=== PATIENT | male | born 1985 | race African-American/Black ===

== ENCOUNTER 2016-12-06 05:24 | Day surgery (SDC) | payer MEDICAID ==
[~2016-12-06] VITALS: Ht 175.3 cm; Wt 111.6 kg
[2016-12-06] MEDS ORDERED: LACTATED RINGERS 1,000 ML IV SCH ×2 (06:40→06:45)
[2016-12-06] MEDS ORDERED: NORMAL SALINE 0.9% 10 ML SYR ONE (07:27)
[2016-12-06] MEDS ORDERED: MORPHINE SULFATE/PF 1MG/ML 10ML AMP ONE (07:27)
[2016-12-06] MEDS ORDERED: BACITRACIN ZINC 15GM TUBE TOP ONE (07:27)
[2016-12-06] MEDS ORDERED: BACITRACIN 50,000 UNITS/VIAL ONE (07:28)
[2016-12-06] MEDS ORDERED: BUPIVACAINE/EPINEPHRINE/PF 0.25%/0.0005 30ML ONE (07:28)
[2016-12-06] MEDS ORDERED: MIDAZOLAM HCL 2 MG/2 ML VIAL ONE (07:56)
[2016-12-06] MEDS ORDERED: CEFAZOLIN SODIUM 1000MG/VIAL ONE (07:58)
[2016-12-06] MEDS ORDERED: PROPOFOL 200MG/20ML VIAL IV ONE (07:58)
[2016-12-06] MEDS ORDERED: LIDOCAINE HCL 1% 20ML VIAL (Pyxis) INJ ONE (07:58)
[2016-12-06] MEDS ORDERED: FENTANYL CITRATE/PF 50MCG/ML 2ML VIAL ONE ×3 (08:05→09:38)
[2016-12-06] MEDS ORDERED: SODIUM CHLORIDE 0.9% 1,000 ML IV SCH (08:25)
[2016-12-06] MEDS ORDERED: ONDANSETRON HCL 4MG/2ML VIAL IV PRN (08:30)
[2016-12-06] MEDS ORDERED: HYDROMORPHONE HCL/PF 2MG/ML CPJ IV PRN (08:30)
[2016-12-06] MEDS ORDERED: ONDANSETRON HCL 4MG/2ML VIAL ONE (09:16)
== END 2016-12-06 12:05 ==
LOC: OR 05:24
PROVIDERS: ATTEND Orthopaedic Surgery
DX: S82.51XA Displaced fracture of medial malleolus of right tibia, initial encounter for closed fracture (principal); E66.01 Morbid (severe) obesity due to excess calories; F17.210 Nicotine dependence, cigarettes, uncomplicated; V29.9XXA Motorcycle rider (driver) (passenger) injured in unspecified traffic accident, initial encounter; Y93.89 Activity, other specified; Y92.89 Other specified places as the place of occurrence of the external cause; Y99.8 Other external cause status; Z86.11 Personal history of tuberculosis
CPT/HCPCS: 27814; 87070; 87075; 87205; A4216; J0171; J0690; J2250; J2405; J3010; J3490; J7120; J2274; J2704